=== PATIENT | female | born 1945 | race African-American/Black ===

== ENCOUNTER 2017-12-28 20:28 | Inpatient (IN) | payer OTHER ==
[~2017-12-28] VITALS: Ht 170.2 cm; Wt 54.4 kg
[2017-12-28] MEDS ORDERED: LEVETIRACETAM 500MG PREMIX 100 ML IV ONE (23:00)
[2017-12-28] MEDS ORDERED: LORAZEPAM 2MG/ML CPJ IV ONE (23:00)
[2017-12-29 00:12] LABS: BASOPHILS % 0.2 % (0.0-2.0); EOSINOPHILS % 0.2 % (0.0-5.0); HEMATOCRIT. 40.6 % (36.0-48.0); HEMOGLOBIN. 13.5 g/dL (12.0-16.0); LYMPHOCYTES % 22.2 % (20.0-50.0); MEAN CORPUSCULAR HEMOGLOBIN 30.5 pg (28.0-32.0); MEAN PLATELET VOLUME 8.5 fl (7.4-10.4); MONOCYTES % 5.4 % (2.0-8.0); PLATELET 207 x1000/uL (130-400); RED BLOOD CELL COUNT 4.42 mill/uL (4.2-5.4); RED CELL DISTRIBUTION WIDTH 13.7 % (11.6-14.6)
[2017-12-29 00:15] LABS: PROTHROMBIN TIME 10.3 sec (9.1-11.1)
[2017-12-29 00:17] LABS: CHLORIDE 109 mEq/L (98-107)
[2017-12-29] MEDS ORDERED: POTASSIUM CHLORIDE 20MEQ TABLET SR PO ONE (02:00)
[2017-12-29] MEDS ORDERED: SODIUM CHLORIDE 0.9% 1,000 ML IV SCH (02:02)
[2017-12-29 04:00] VITALS: BP 156/85
[2017-12-29 04:50] VITALS: BP 156/85
[2017-12-29] MEDS ORDERED: LORAZEPAM 2MG/ML CPJ IV PRN (07:00)
[2017-12-29] MEDS ORDERED: DEXTROSE 50% WATER 50ML SYRINGE IV PRN (07:00)
[2017-12-29] MEDS ORDERED: MORPHINE SULFATE 4 MG/ML CPJ (NOT FOR IM USE) IV PRN (07:15)
[2017-12-29] MEDS: INSULIN LISPRO 100 UNITS/ML SUBCUT SCH ×4 (07:15→21:00)
[2017-12-29 08:00] VITALS: BP 173/86
[2017-12-29] MEDS ORDERED: LEVETIRACETAM 500MG TABLET PO SCH (09:00)
[2017-12-29] MEDS ORDERED: AMLODIPINE 10MG TABLET PO SCH ×2 (09:00)
[2017-12-29] MEDS ORDERED: HYDRALAZINE 20MG/ML VIAL IV PRN (10:15)
[2017-12-29] MEDS ORDERED: MEMA5TAB15 PO (10:53)
[2017-12-29] MEDS ORDERED: DONE10TA43 PO (10:53)
[2017-12-29] MEDS ORDERED: RISP1TAB26 PO (10:53)
[2017-12-29] MEDS ORDERED: SIMV20TA6 PO (10:53)
[2017-12-29 10:54] LABS: BASOPHILS % 0.5 % (0.0-2.0); EOSINOPHILS % 0.6 % (0.0-5.0); HEMATOCRIT. 39.7 % (36.0-48.0); HEMOGLOBIN. 13.1 g/dL (12.0-16.0); LYMPHOCYTES % 44.6 % (20.0-50.0); MEAN CORPUSCULAR HEMOGLOBIN 30.9 pg (28.0-32.0); MEAN CORPUSCULAR VOLUME 93.3 fL (81.0-99.0); MEAN PLATELET VOLUME 8.6 fl (7.4-10.4); MONOCYTES % 8.3 % (2.0-8.0); PLATELET 178 x1000/uL (130-400); RED BLOOD CELL COUNT 4.25 mill/uL (4.2-5.4); RED CELL DISTRIBUTION WIDTH 13.9 % (11.6-14.6)
[2017-12-29 11:14] LABS: CHLORIDE 113 mEq/L (98-107)
[2017-12-29 11:32] LABS: AMMONIA 25 uMol/L (<32)
[2017-12-29] MEDS: BLOOD SUGAR DIAGNOSTIC STRIP TEST SCH ×3 (11:45→21:00)
[2017-12-29 12:00] VITALS: BP 115/67
[2017-12-29 16:00] VITALS: BP 118/59
[2017-12-29] MEDS: LEVETIRACETAM 500MG TABLET PO SCH (17:00)
[2017-12-29] MEDS: DEXT 5%/0.45% NACL 1000ML 1,000 ML IV SCH (18:30)
[2017-12-29 20:00] VITALS: BP 154/75
[2017-12-30] VITALS (7 sets, daily range): BP systolic 128–155; BP diastolic 65–90
[2017-12-30] MEDS: DEXT 5%/0.45% NACL 1000ML 1,000 ML IV SCH (02:30)
[2017-12-30] MEDS: BLOOD SUGAR DIAGNOSTIC STRIP TEST SCH ×2 (06:45→11:45)
[2017-12-30] MEDS: INSULIN LISPRO 100 UNITS/ML SUBCUT SCH ×2 (06:45→12:15)
[2017-12-30] MEDS: LEVETIRACETAM 500MG TABLET PO SCH (08:40)
[2017-12-30] MEDS ORDERED: AMLODIPINE 10MG TABLET PO SCH (09:00)
[2017-12-30 17:11] LABS: *BARBITURATES SCREEN URINE NEGATIVE (NEGATIVE); *COCAINE SCREEN URINE NEGATIVE (NEGATIVE)
[2017-12-30 17:12] LABS: *AMPHETAMINES SCREEN URINE NEGATIVE (NEGATIVE); CANNABINOID URINE SCREEN NEGATIVE (NEGATIVE); METHADONE URINE SCREEN NEGATIVE (NEGATIVE); OPIATES URINE SCREEN NEGATIVE (NEGATIVE); PHENCYCLIDINE URINE SCREEN NEGATIVE (NEGATIVE)
[2017-12-30 17:14] LABS: *BENZODIAZEPINES SCREEN URINE NEGATIVE (NEGATIVE)
== END 2017-12-30 19:55 | disposition home or self-care (01) | DRG 100 ==
LOC: EDBD 20:28 → ER 20:28 → 5WST 12-29 02:02 → EDBEDREQDT 12-29 02:07 → EDBEDREQTM 12-29 02:07 → EDBEDREQ 12-29 02:07 → ENRESERV 12-29 02:57
PROVIDERS: ADMIT Internal Medicine; ATTEND Internal Medicine
DX: G40.909 Epilepsy, unspecified, not intractable, without status epilepticus (principal); G93.41 Metabolic encephalopathy; E11.9 Type 2 diabetes mellitus without complications; F03.90 Unspecified dementia, unspecified severity, without behavioral disturbance, psychotic disturbance, mood disturbance, and anxiety; I10 Essential (primary) hypertension; E87.6 Hypokalemia; E87.8 Other disorders of electrolyte and fluid balance, not elsewhere classified; Z79.899 Other long term (current) drug therapy
CPT/HCPCS: 36415; 70450; 70551; 71045; 80053; 80305; 82140; 82962; 84134; 84484; 85025; 85610; 93005; 96365; 96375; 99291; G0482; J1953; J2060; J3490; J7030